=== PATIENT | female | born 1990 | race Caucasian/White ===

== ENCOUNTER 2025-05-19 21:33 | Emergency (ER) | payer BC, OTHER, SELFPAY ==
--- NOTE | ~2025-05-19 | CT_ITS ---
CT of the Abdomen and Pelvis: Indication: Abdominal pain Technique: 2.5 mm axial scans were obtained through the abdomen and pelvis following intravenous adm inistration of 100 cc of Omnipaque 350. Dose reduction technique was used on this scan by utilizing a utomated exposure control and iterative reconstruction technique. The dose-length product (DLP) was 3 66.35 mGy-cm. Findings: Scans through the lung bases are unremarkable. The liver, spleen, pancreas, gallbladder, adrenals and kidneys are within normal limits. No evidence of aortic aneurysm. No lymphadenopathy. No bowel obstruction or bowel wall thickening. There is no evidence to suggest acute appendicitis. Images through the pelvis were performed. Urinary bladder unremarkable. No pelvic mass evident. No as cites. Impression: No significant abnormalities seen. Reviewed, dictated and finalized at location . Impression: No significant abnormalities seen.
[2025-05-19 21:37] VITALS: BP 132/79; PULSE 69; RESP 14; TEMP 36.2; O2SAT 98
[2025-05-19 23:08] LABS: BEDSIDEPREGUCG Negative (Negative)
[2025-05-19 23:23] LABS: Add Urine Microscopic? NO; Appearance Urine Clear (Clear); Bilirubin Urine Negative (Negative); Blood Urine Negative (Negative); Color Urine Yellow (Yellow); Glucose Urine UA Negative (Negative); Ketones Urine Negative (Negative); Leukocyte Esterase Ur Negative LEU/UL (Negative); Nitrate Urine Negative (Negative); Protein Urine Negative (Negative); Specific Grav Ur 1.022 (1.001-1.035); pH Urine 6.5 (5.0-9.0)
[2025-05-20 00:27] LABS: Basophils Absolute Auto 0.1 K/mm3 (0.0-0.1); Basophils Percent Auto 0.9 % (0.2-1.2); Eosinophils Absolute Auto 0.3 K/mm3 (0-0.3); Eosinophils Percent Auto 4.1 % (0-4.4); Hematocrit 38.6 % (37.0-47.0); Hemoglobin 12.4 g/dL (12.0-15.0); Immature Granulocyte Absolute 0.01 K/mm3 (0.00-0.031); Immature Granulocyte Percent A 0.2 % (0-0.5); Lymphocytes Absolute Auto 2.86 K/mm3 (0.9-3.2); Lymphocytes Percent Auto 43.3 % (18.3-44.2); Mean Corpuscular HGB Conc 32.1 g/dl (32-36); Mean Corpuscular Volume 90.2 fl (80-100); Mean Platelet Volume 9.5 fl (7.4-10.4); Monocytes Absolute Auto 0.5 K/mm3 (0.1-0.6); Monocytes Percent Auto 7.3 % (2.6-8.5); Neutrophils Absolute Auto 2.9 K/mm3 (1.3-6.7); Neutrophils Percent Auto 44.2 % (45.5-73.1); Platelet Count Result 237 k/mm3 (150-375); Red Blood Count 4.28 M/mm3 (4.2-5.4); Red Cell Distribution Width 12.4 % (11.5-14.5); White Blood Count 6.6 K/mm3 (4.5-10.0)
[2025-05-20 00:29] VITALS: BP 170/80; PULSE 82; RESP 17; O2SAT 99
[2025-05-20 00:37] LABS: Alanine Aminotransferase 16 U/L (6-35); Albumin Level 4.8 g/dL (3.5-5.1); Alkaline Phosphatase 50 U/L (38-126); Anion Gap 10 mmol/L (4-12); Aspartate Amino Transferase 31 U/L (14-36); Bilirubin,Total 0.3 mg/dL (0.2-1.3); Blood Urea Nitrogen 11 mg/dL (7-17); Calcium 9.5 mg/dL (8.4-10.2); Carbon Dioxide 27 mmol/L (22-30); Chloride 103 mmol/L (98-107); Estimated Glomerular Filt Rate > 60; Glucose 100 mg/dL (65-110); Lipase 89 U/L (23-300); Potassium 3.8 mmol/L (3.4-5.0); Sodium 140 mmol/L (137-145); Total Protein 8.1 g/dL (6.3-8.2)
--- NOTE | 2025-05-20 00:59 | ED_ITS ---
HPI - General Adult General Chief complaint: GREASE REMOVER <BILL Bailon Last Filed: 05/20/25 02:53> Stated complaint: pelvic pain x 4 days <BILL Bailon Last Filed: 05/20/25 02:53> Time Seen by Provider: 05/20/25 00:09 <BILL Bailon Last Filed: 05/20/25 02:53> Source: patient <BILL Bailon Last Filed: 05/20/25 02:53> Mode of arrival: ambulatory <BILL Bailon Filed: 05/20/25 02:53> Limitations: no limitations <BILL Bailon Last Filed: 05/20/25 02:53> History of Present Illness HPI narrative: Patient is a 35-year-old female who presents the ED with report of right lower quadrant abdominal pain. Patient reports she has been having pain throughout her right lower abdomen for the past 3 days. Pain is constant with intermittent sharp stabbing pains. Pain radiates into her right pelvic region. Today, pain began radiating to her left lower abdomen and radiating around to her left lower back. Has been taking Tylenol with minimal relief. Reports nausea associated with the pain. Denies vomiting, known fevers. Denies diarrhea, constipation, dysuria, hematuria. Notes she just finished her normal menstrual cycle. <BILL Bailon Last Filed: 05/20/25 02:53> Related Data Allergies/adverse reactions: Allergies Allergy/AdvReac Type Severity Reaction Status Date / Time hydrocodone Allergy Severe HIVES, Verified 05/19/25 21:37 ITCHING azithromycin Allergy Unknown N&V, HIVES Verified 05/19/25 21:37 doxycycline Allergy Unknown N&V, HIVES Verified 05/19/25 21:37 guaifenesin Allergy Unknown HIVES Verified 05/19/25 21:37 <BILL Bailon Last Filed: 05/20/25 02:53> Review of Systems 2 Review of Systems: All systems reviewed & are unremarkable except as noted in HPI. <Malini Donovan PA-C - Last Filed: 05/20/25 02:53> All systems reviewed & are unremarkable except as noted in HPI and below < Malini Donovan PA-C - Last Filed: 05/20/25 02:53> Exam 2 Narrative: GENERAL: Mildly uncomfortable appearing, well-nourished, non-toxic, in no acute distress. HEAD: Normocephalic, atraumatic. RESPIRATORY: Airway patent, respirations nonlabored. Clear to auscultation bilaterally, no rales, rhonchi, wheezing. CARDIOVASCULAR: Regular rate and rhythm without murmurs, rubs, or gallops. ABDOMINAL: Soft, diffuse tenderness throughout lower abdomen, worst in right lower quadrant, nondistended. Normoactive BS. MUSCULOSKELETAL: Moves all extremities. No gross deformities. SKIN: Warm, dry, normal color. NEURO: A&O X3. Speech clear. PSYCHIATRIC: Appropriate mood and affect. Normal interaction. <Malini Donovan PA-C - Last Filed: 05/20/25 02:53> Course [facility]/PA Physician Supervision For this patient encounter, I reviewed the [facility] or PA documentation, treatment plan, and medical decision making; and I had [id number] time with this patient. <David Valentine MD - Last Filed: 05/20/25 05:22> Vital Signs Vital signs: Vital Signs Temperature 97.2 F L 05/19/25 21:37 Pulse Rate 69 05/19/25 21:37 Respiratory Rate 14 05/19/25 21:37 Blood Pressure 132/79 05/19/25 21:37 Pulse Oximetry 98 05/19/25 21:37 Oxygen Delivery Room Air 05/19/25 21:37 Temperature 97.2 F L 05/19/25 21:37 Pulse Rate 73 05/20/25 04:53 Respiratory Rate 13 05/20/25 04:53 Blood Pressure 145/81 H 05/20/25 04:53 Pulse Oximetry 99 05/20/25 04:53 Oxygen Delivery Room Air 05/19/25 21:37 <Malini Donovan PA-C - Last Filed: 05/20/25 02:53> Vital Signs Temperature 97.2 F L 05/19/25 21:37 Pulse Rate 69 05/19/25 21:37 Respiratory Rate 14 05/19/25 21:37 Blood Pressure 132/79 05/19/25 21:37 Pulse Oximetry 98 05/19/25 21:37 Oxygen Delivery Room Air 05/19/25 21:37 Temperature 97.2 F L 05/19/25 21:37 Pulse Rate 73 05/20/25 04:53 Respiratory Rate 13 05/20/25 04:53 Blood Pressure 145/81 H 05/20/25 04:53 Pulse Oximetry 99 05/20/25 04:53 Oxygen Delivery Room Air 05/19/25 21:37 <David Valentine MD - Last Filed: 05/20/25 05:22> Medical Decision Making MDM Narrative Medical decision making narrative: Patient presented to ED with 3 day history of right lower abdominal pain/pelvic pain. Vital signs stable upon arrival. Patient mildly uncomfortable appearing, but did not want anything for pain. Laboratory studies are unremarkable. No leukocytosis or anemia. Stable electrolytes. Normal LFTs and lipase. UA is clear. Urine is negative. CT scan of abdomen/pelvis was obtained. Care signed out to Dr. Valentine at shift change pending stat rad imaging. < Malini Donovan PA-C - Last Filed: 05/20/25 02:53> Patient presented to ED with 3 day history of right lower abdominal pain/pelvic pain. Vital signs stable upon arrival. Patient mildly uncomfortable appearing, but did not want anything for pain. Laboratory studies are unremarkable. No leukocytosis or anemia. Stable electrolytes. Normal LFTs and lipase. UA is clear. Urine is negative. CT scan of abdomen/pelvis was obtained. Care signed out to Dr. Valentine at shift change pending stat rad imaging. CT scan was negative for acute appendicitis with no other acute findings. Patient was updated results of her imaging and patient will have close follow-up with [facility]. <David Valentine MD - Last Filed: 05/20/25 05:22> Medical Records Medical records reviewed: Yes I reviewed the external patient's medical records. <Malini Donovan PA-C - Last Filed: 05/20/25 02:53> Vital Signs Vital Signs: Vital Signs Temperature 97.2 F L 05/19/25 21:37 Pulse Rate 69 05/19/25 21:37 Respiratory Rate 14 05/19/25 21:37 Blood Pressure 132/79 05/19/25 21:37 Pulse Oximetry 98 05/19/25 21:37 Oxygen Delivery Room Air 05/19/25 21:37 Temperature 97.2 F L 05/19/25 21:37 Pulse Rate 73 05/20/25 04:53 Respiratory Rate 13 05/20/25 04:53 Blood Pressure 145/81 H 05/20/25 04:53 Pulse Oximetry 99 05/20/25 04:53 Oxygen Delivery Room Air 05/19/25 21:37 <Malini Donovan PA-C - Last Filed: 05/20/25 02:53> Vital Signs Temperature 97.2 F L 05/19/25 21:37 Pulse Rate 69 05/19/25 21:37 Respiratory Rate 14 05/19/25 21:37 Blood Pressure 132/79 05/19/25 21:37 Pulse Oximetry 98 05/19/25 21:37 Oxygen Delivery Room Air 05/19/25 21:37 Temperature 97.2 F L 05/19/25 21:37 Pulse Rate 73 05/20/25 04:53 Respiratory Rate 13 05/20/25 04:53 Blood Pressure 145/81 H 05/20/25 04:53 Pulse Oximetry 99 05/20/25 04:53 Oxygen Delivery Room Air 05/19/25 21:37 <David Valentine MD - Last Filed: 05/20/25 05:22> Lab Data Lab results reviewed: Yes I reviewed the patient's lab results. <Malini Donovan PA-C - Last Filed: 05/20/25 02:53> Result diagrams: 05/20/25 00:22 05/20/25 00:22 <BILL Bailon Last Filed: 05/20/25 02:53> Labs: Lab Results 05/19/25 05/19/25 05/20/25 Range/Units 22:23 23:06 00:22 WBC 6.6 (4.5-10.0) K/mm3 RBC 4.28 (4.2-5.4) M/mm3 Hgb 12.4 (12.0-15.0) g/dL Hct 38.6 (37.0-47.0) % MCV 90.2 (80-100) fl MCH 29.0 (26-34) pg MCHC 32.1 (32-36) g/dl RDW 12.4 (11.5-14.5) % Plt Count 237 (150-375) k/mm3 MPV 9.5 (7.4-10.4) fl Immature Gran % (Auto) 0.2 (0-0.5) % Neut % (Auto) 44.2 L (45.5-73.1) % Lymph % (Auto) 43.3 (18.3-44.2) % [place] % (Auto) 7.3 (2.6-8.5) % Eos % (Auto) 4.1 (0-4.4) % Baso % (Auto) 0.9 (0.2-1.2) % Lymph # (Auto) 2.86 (0.9-3.2) K/mm3 [place]ie # (Auto) 0.5 (0.1-0.6) K/mm3 Eos # (Auto) 0.3 (0-0.3) K/mm3 Baso # (Auto) 0.1 (0.0-0.1) K/mm3 Abs Immat Gran (auto) 0.01 (0.00-0.031) K/mm3 Absolute Neuts (auto) 2.9 (1.3-6.7) K/mm3 Absolute Nucleated RBC 0.000 (0.0-0.012) K/mm3 Nucleated RBC % 0.0 (0.0-0.2) % Sodium 140 (137-145) mmol/L Potassium 3.8 (3.4-5.0) mmol/L Chloride 103 (98-107) mmol/L Carbon Dioxide 27 (22-30) mmol/L Anion Gap 10 (4-12) mmol/L BUN 11 (7-17) mg/dL Creatinine 0.64 L (0.7-1.0) mg/dL Estim Creat Clear Calc Not Reportable Estimated GFR > 60 (59 - ) Glucose 100 (65-110) mg/dL Calcium 9.5 (8.4-10.2) mg/dL Total Bilirubin 0.3 (0.2-1.3) mg/dL AST 31 (14-36) U/L ALT 16 (6-35) U/L Alkaline Phosphatase 50 (38-126) U/L Total Protein 8.1 (6.3-8.2) g/dL Albumin 4.8 (3.5-5.1) g/dL Lipase 89 (23-300) U/L Urine Color Yellow (Yellow) Urine Appearance Clear (Clear) Urine pH 6.5 (5.0-9.0) Ur Specific [place] 1.022 (1.001-1.035) Urine Protein Negative (Negative) mg/dL Urine Glucose (UA) Negative (Negative) mg/dL Urine Ketones Negative (Negative) mg/dL Ur Blood (Man) Negative (Negative) Urine Nitrate Negative (Negative) Urine Bilirubin Negative (Negative) Urine Urobilinogen 1.0 (<2.0) mg/dL Leukocyte Esterase Rfl Negative (Negative) BEVERLEY/UL POC Urine HCG, Qual Negative (Negative) <Malini Donovan PA-C - Last Filed: 05/20/25 02:53> Lab Results 05/19/25 05/19/25 05/20/25 Range/Units 22:23 23:06 00:22 WBC 6.6 (4.5-10.0) K/mm3 RBC 4.28 (4.2-5.4) M/mm3 Hgb 12.4 (12.0-15.0) g/dL Hct 38.6 (37.0-47.0) % MCV 90.2 (80-100) fl MCH 29.0 (26-34) pg MCHC 32.1 (32-36) g/dl RDW 12.4 (11.5-14.5) % Plt Count 237 (150-375) k/mm3 MPV 9.5 (7.4-10.4) fl Immature Gran % (Auto) 0.2 (0-0.5) % Neut % (Auto) 44.2 L (45.5-73.1) % Lymph % (Auto) 43.3 (18.3-44.2) % [place]ie % (Auto) 7.3 (2.6-8.5) % Eos % (Auto) 4.1 (0-4.4) % Baso % (Auto) 0.9 (0.2-1.2) % Lymph # (Auto) 2.86 (0.9-3.2) K/mm3 [place]ie # (Auto) 0.5 (0.1-0.6) K/mm3 Eos # (Auto) 0.3 (0-0.3) K/mm3 Baso # (Auto) 0.1 (0.0-0.1) K/mm3 Abs Immat Gran (auto) 0.01 (0.00-0.031) K/mm3 Absolute Neuts (auto) 2.9 (1.3-6.7) K/mm3 Absolute Nucleated RBC 0.000 (0.0-0.012) K/mm3 Nucleated RBC % 0.0 (0.0-0.2) % Sodium 140 (137-145) mmol/L Potassium 3.8 (3.4-5.0) mmol/L Chloride 103 (98-107) mmol/L Carbon Dioxide 27 (22-30) mmol/L Anion Gap 10 (4-12) mmol/L BUN 11 (7-17) mg/dL Creatinine 0.64 L (0.7-1.0) mg/dL Estim Creat Clear Calc Not Reportable Estimated GFR > 60 (59 - ) Glucose 100 (65-110) mg/dL Calcium 9.5 (8.4-10.2) mg/dL Total Bilirubin 0.3 (0.2-1.3) mg/dL AST 31 (14-36) U/L ALT 16 (6-35) U/L Alkaline Phosphatase 50 (38-126) U/L Total Protein 8.1 (6.3-8.2) g/dL Albumin 4.8 (3.5-5.1) g/dL Lipase 89 (23-300) U/L Urine Color Yellow (Yellow) Urine Appearance Clear (Clear) Urine pH 6.5 (5.0-9.0) Ur Specific [place] 1.022 (1.001-1.035) Urine Protein Negative (Negative) mg/dL Urine Glucose (UA) Negative (Negative) mg/dL Urine Ketones Negative (Negative) mg/dL Ur Blood (Man) Negative (Negative) Urine Nitrate Negative (Negative) Urine Bilirubin Negative (Negative) Urine Urobilinogen 1.0 (<2.0) mg/dL Leukocyte Esterase Rfl Negative (Negative) BEVERLEY/UL POC Urine HCG, Qual Negative (Negative) <David Valentine MD - Last Filed: 05/20/25 05:22> Imaging Data Attestation: I personally reviewed and interpreted this imaging study as follows: < Malini Donovan PA-C - Last Filed: 05/20/25 02:53> Radiologist's impression: CT abdomen pelvis with contrast Impression: Normal appendix <David Valentine MD - Last Filed: 05/20/25 05:22> Discharge Plan Discharge Clinical Impression: Right lower quadrant abdominal pain, Ovarian cyst <Malini Donovan PA-C - Last Filed: 05/20/25 02:53> Patient Disposition: Home <Malini Donovan PA-C - Last Filed: 05/20/25 02:53> Condition: Stable <BILL Bailon Last Filed: 05/20/25 02:53> Instructions: Antibiotic Form, Ovarian Cyst (ED), Abdominal Pain (ED) <BILL Bailon Last Filed: 05/20/25 02:53> Additional Instructions: Continue Tylenol/ibuprofen as needed for pain. Follow-up with your OBGYN for further evaluation. Return to ED for new or worsening concerns. <Malini Donovan PA-C - Last Filed: 05/20/25 02:53> Patient Language: Romanian <BILL Bailon Last Filed: 05/20/25 02:53> Follow-up/Referrals: PHYSICIAN,[facility]ER [Primary Care Provider] - <BILL Bailon Last Filed: 05/20/25 02:53>
[2025-05-20 02:51] VITALS: BP 102/70; PULSE 63; RESP 13; O2SAT 97
[2025-05-20 04:28] VITALS: BP 145/81; PULSE 73; RESP 13; O2SAT 99
[2025-05-20 04:53] VITALS: BP 145/81; PULSE 73; RESP 13; O2SAT 99
== END 2025-05-20 04:54 | disposition home or self-care (01) ==
PROVIDERS: Emergency Medicine; Emergency Provider Physician Assistant
DX: N83.201 Unspecified ovarian cyst, right side (principal)
CPT/HCPCS: 36415; 74177; 80053; 81003; 81025; 83690; 85025; 99284; Q9967